=== PATIENT | female | born 1980 | race Caucasian/White ===

== ENCOUNTER 2023-09-22 10:12 | Outpatient (CLI) | payer MEDICAID | END 2023-09-22 23:59 | disposition home or self-care (01) | LOC: RAD 10:12 | PROVIDERS: ATTEND Family Medicine | DX: R10.2 Pelvic and perineal pain (principal); Z97.5 Presence of (intrauterine) contraceptive device; Z53.8 Procedure and treatment not carried out for other reasons | CPT/HCPCS: 76856; 93976 ==

== ENCOUNTER 2023-12-06 05:21 | Emergency (ER) | payer MEDICAID ==
[~2023-12-06] VITALS: Ht 157.5 cm; Wt 95.5 kg
[2023-12-06 05:26] VITALS: BP_SYST 167; PULSE 93; RESP 16; TEMP 98.3; O2SAT 99
[2023-12-06] MEDS ORDERED: GUAI100L97 PO (05:46)
[2023-12-06] MEDS ORDERED: BENZ-38 PO (05:46)
[2023-12-06] MEDS ORDERED: PSEU-259 PO (05:46)
== END 2023-12-06 08:21 | disposition home or self-care (01) ==
LOC: ER 05:22
DX: J06.9 Acute upper respiratory infection, unspecified (principal); R05.9 Cough, unspecified; Z20.822 Contact with and (suspected) exposure to COVID-19
CPT/HCPCS: 36415; 87811; 99283